=== PATIENT | female | born 1965 | race African-American/Black ===

== ENCOUNTER 2024-12-18 00:36 | Inpatient (IN) | payer MEDICAID ==
[~2024-12-18] VITALS: Ht 170.2 cm; Wt 126.3 kg
[2024-12-18 02:36] LABS: PLATELET COUNT (AUTO) 394 K/uL (150-450); RED BLOOD CELL COUNT(AUTO) 4.50 MIL/uL (4.00-5.20); RED CELL DISTRIBUTION WIDTH 17.4 % (11.5-14.5); WHITE BLOOD COUNT (AUTO) 8.5 K/uL (4.5-11.0)
[2024-12-18 02:46] LABS: CALCIUM, TOTAL 8.0 mg/dL (8.8-10.5); CREATININE 0.58 mg/dL (0.60-1.30); GLOMERULAR FILTR. RATE CALC > 60 mL/min (>60); GLUCOSE,RANDOM 103 mg/dL (70-110); SODIUM SERUM 141 mmol/L (136-145); UREA NITROGEN, BLOOD 10 mg/dL (7-18)
[2024-12-18] MEDS: IPRATROPIUM BROMIDE 0.5 MG/2.5 ML NEB SOLUTION NEB ONE (02:47)
[2024-12-18] MEDS: ALBUTEROL SULFATE 2.5 MG/0.5 ML NEB SOLUTION NEB ONE (02:47)
[2024-12-18 02:50] VITALS: PULSE 88; RESP 20; O2SAT 94; O2SAT 98
[2024-12-18 02:55] LABS: TROPONIN I-HIGH SENSITIVITY 16 ng/L (<51)
[2024-12-18 02:56] LABS: COVID AG,FIA SOURCE NASAL SWAB
[2024-12-18 03:05] VITALS: PULSE 93; RESP 20; O2SAT 99
[2024-12-18 03:08] LABS: SARS-COV2 (COVID) ANTIGEN,FIA Negative (Negative)
[2024-12-18 03:09] LABS: INFLUENZA TYPE A NEGATIVE FOR TYPE A (NEGATIVE); INFLUENZA TYPE B NEGATIVE FOR TYPE B (NEGATIVE)
[2024-12-18] MEDS ORDERED: ACETAMINOPHEN 325 MG TABLET PO PRN (08:45)
[2024-12-18] MEDS ORDERED: ONDANSETRON HCL 4 MG/2 ML VIAL IVP PRN (08:45)
[2024-12-18] MEDS ORDERED: ALBUTEROL SULFATE 2.5 MG/0.5 ML NEB SOLUTION NEB PRN (08:45)
[2024-12-18] MEDS: DOCUSATE SODIUM 100 MG CAPSULE PO SCH (09:00)
[2024-12-18] MEDS: FAMOTIDINE 20 MG TABLET PO SCH (09:00)
[2024-12-18 10:28] VITALS: BP 144/93; PULSE 98; RESP 18; TEMP 98.2; O2SAT 94
[2024-12-18] MEDS: OxyCODONE HCL/ACETAMINOPHEN 5-325 MG TABLET PO PRN (11:27)
[2024-12-18] MEDS: HEPARIN SODIUM,PORCINE 5,000 UNITS/ML VIAL SQ SCH (16:00)
[2024-12-18 17:20] VITALS: BP 148/92; PULSE 99; RESP 19; TEMP 98; O2SAT 96
[2024-12-18 19:24] VITALS: BP 157/87; PULSE 89; RESP 20; TEMP 98.2; O2SAT 93
[2024-12-19 08:13] VITALS: BP 149/102; PULSE 82; RESP 20; TEMP 98.3; O2SAT 100
[2024-12-19] MEDS: AZITHROMYCIN 250 MG TABLET PO SCH (10:03)
[2024-12-19] MEDS: LOSARTAN POTASSIUM 25 MG TABLET PO SCH (10:03)
== END 2024-12-19 16:00 | disposition left against medical advice (07) | DRG 140 ==
LOC: EMS 00:47 → EDH 06:11 → 4E 09:50
PROVIDERS: ADMIT Hospitalist; ATTEND Hospitalist
DX: J44.1 Chronic obstructive pulmonary disease with (acute) exacerbation (principal); J96.91 Respiratory failure, unspecified with hypoxia; I50.9 Heart failure, unspecified; I11.0 Hypertensive heart disease with heart failure; Z53.21 Procedure and treatment not carried out due to patient leaving prior to being seen by health care provider; Z20.822 Contact with and (suspected) exposure to COVID-19; E66.01 Morbid (severe) obesity due to excess calories; F17.200 Nicotine dependence, unspecified, uncomplicated; G47.33 Obstructive sleep apnea (adult) (pediatric); Z68.41 Body mass index [BMI] 40.0-44.9, adult
CPT/HCPCS: 71045; 80048; 83880; 84484; 85025; 87804; 93005; 94640; 99285; G0378; J1644; J2919; 36415-L1; 36415-TC; J7512; J7613; Z7610